=== PATIENT | female | born 1975 | race Caucasian/White ===

== ENCOUNTER 2024-11-20 07:30 | Emergency (ER) | payer MEDICAID, SELFPAY ==
[2024-11-20 07:47] VITALS: BP 142/96; PULSE 110; RESP 18; TEMP 36.8; O2SAT 97
[2024-11-20] MEDS: METOCLOPRAMIDE 5 MG TABLET 10 MG PO (08:01)
[2024-11-20] MEDS: HYDROcodone/APAP 5/325 TABLET 1 TAB PO (08:01)
--- NOTE | 2024-11-20 08:47 | PC.NURSE ---
Called pt from inside and outside of lobby for CT. Pt did not answer at this time.
--- NOTE | 2024-11-20 09:52 | PC.NURSE ---
CALLED PT INSIDE AND OUTSIDE THE LOBBY. PT DID NOT ANSWER X2
--- NOTE | 2024-11-20 11:08 | PC.NURSE ---
PT CALLED 3X, PT NOT FOUND IN OR OUTSIDE OF LOBBY. PT ELOPED.
--- NOTE | 2024-11-20 11:36 | PD.EDRME ---
Rapid Medical Screening Exam RME Arrival date/time: 11/20/24 07:30 49-year-old female presents to the emergency department today for complaints of headache This is RME only patient be seen in main ER for further evaluation Chief Complaint: Headache Time Seen by Provider: 11/20/24 07:43 Vital signs: Vital Signs Temperature 98.3 F 11/20/24 07:47 Pulse Rate 110 H 11/20/24 07:47 Respiratory Rate 18 11/20/24 07:47 Blood Pressure 142/96 H 11/20/24 07:47 Pulse Oximetry (%) 97 11/20/24 07:47 Oxygen Delivery Method Room Air 11/20/24 07:47
== END 2024-11-20 11:09 | disposition left against medical advice (07) ==
LOC: SERX 07:58
PROVIDERS: Emergency Provider Nurse Practitioner Primary Care; PCP Nurse Practitioner Family
DX: R51.9 Headache, unspecified (principal); Z53.29 Procedure and treatment not carried out because of patient's decision for other reasons
CPT/HCPCS: 99283; A9270

== ENCOUNTER → 2025-01-14 | Outpatient (CLI) | payer MEDICAID, SELFPAY ==
--- NOTE | 2025-01-14 14:00 | XR_ITS ---
Examination: CT lung low dose screening, without contrast. 2-D sagittal reconstructions. 2-D coronal reconstructions. 3-D reconstructions. Date and time of exam: January 14, 2025, 1418 hours INDICATIONS: Smoking history 30 years CTDI: vol (mGy): 21 DLP: (mGycm): 767 Technique: Multiple 1.25 mm axial sections of the lung low-dose screening without contrast have been obtained. 2-D sagittal and coronal reconstructions have been obtained. 3-D reconstructions have been obtained. Low dose protocols were performed. One or more of the following dose reduction techniques were used; automated exposure control, adjustment of the mA and/or KV according to patient size, use of iterative reconstruction technique. Findings: 26 mm anterior mediastinal lymph node No thoracic aortic aneurysm dilatation Pulmonary artery segments are not enlarged. 4 mm calcified nodule posterior right lung No noncalcified pulmonary nodules No pneumonia or pulmonary edema No visualized liver or splenic lesion Absent gallbladder No pancreatic or adrenal mass Mild to moderate diffuse thoracic degenerative disc disease IMPRESSION: 26 mm anterior mediastinal lymph node, suggest continued 6-month follow-up CT chest without contrast Small calcified granuloma in the right lung
== END | disposition home or self-care (01) ==
LOC: CCTX 13:48
PROVIDERS: PCP Nurse Practitioner Family; Referring Provider Nurse Practitioner Family; Visit Provider Nurse Practitioner Family
DX: J98.4 Other disorders of lung (principal)
CPT/HCPCS: 71271